=== PATIENT | male | born 1960 | race African-American/Black ===

== ENCOUNTER 2016-07-23 12:47 | Emergency (ER) | payer MEDICARE, MEDICAID ==
[~2016-07-23] VITALS: Ht 182.9 cm; Wt 81.0 kg
[~2016-07-23 12:47] MED LIST: METF500T7
[2016-07-23] MEDS ORDERED: KETOROLAC 60MG/2ML VIAL IM ONE (13:45)
[2016-07-23] MEDS ORDERED: HYDROCODONE/ACETAMINOPHEN 5/325MG TABLET PO ONE (14:45)
[2016-07-23 15:04] VITALS: BP 133/71
[2016-07-29] MEDS ORDERED: METF500T4 PO (02:14)
== END 2016-07-23 15:05 | disposition home or self-care (01) ==
LOC: ER 14:22
DX: S20.211A Contusion of right front wall of thorax, initial encounter (principal); S63.501A Unspecified sprain of right wrist, initial encounter; E11.9 Type 2 diabetes mellitus without complications; F17.210 Nicotine dependence, cigarettes, uncomplicated; Z79.899 Other long term (current) drug therapy; W01.0XXA Fall on same level from slipping, tripping and stumbling without subsequent striking against object, initial encounter; Y93.01 Activity, walking, marching and hiking; Y92.89 Other specified places as the place of occurrence of the external cause; Y99.8 Other external cause status
CPT/HCPCS: 29125; 71101; 73110; 73130; 99284; J1885